=== PATIENT | male | born 1945 | race African-American/Black ===

== ENCOUNTER 2021-08-09 22:36 | Inpatient (IN) | payer OTHER ==
[~2021-08-09] VITALS: Ht 185.4 cm; Wt 98.0 kg
[2021-08-10 00:53] LABS: BASOPHILS % 0.9 % (0.0-2.0); HEMATOCRIT. 44.7 % (42.0-52.0); HEMOGLOBIN. 14.6 g/dL (14.0-18.0); LYMPHOCYTES % 14.3 % (20.0-50.0); MEAN CORPUSCULAR HEMOGLOBIN 28.7 pg (28.0-32.0); MEAN CORPUSCULAR VOLUME 87.9 fL (80.0-94.0); MEAN PLATELET VOLUME 9.4 fl (7.4-10.4); MONOCYTES % 12.1 % (2.0-8.0); NEUTROPHILS % 69.7 % (40.0-76.0); PLATELET 148 x1000/uL (130-400); RED BLOOD CELL COUNT 5.08 mill/uL (4.7-6.1); RED CELL DISTRIBUTION WIDTH 14.3 % (11.6-14.6)
[2021-08-10 00:56] LABS: CHLORIDE 106 mEq/L (98-107)
[2021-08-10 00:59] LABS: ETHANOL BLOOD < 10 mg/dL
[2021-08-10] MEDS ORDERED: ASPIRIN 325MG EC TABLET PO SCH (01:45)
[2021-08-10] MEDS ORDERED: GUAIFENESIN 200MG/10ML SUGAR FREE UDC PO PRN (04:30)
[2021-08-10] MEDS ORDERED: LORAZEPAM 0.5MG TABLET PO PRN (04:30)
[2021-08-10] MEDS ORDERED: DOCUSATE SODIUM 100MG CAPSULE PO PRN (04:30)
[2021-08-10] MEDS ORDERED: ONDANSETRON HCL 4MG/2ML INJ IV PRN (04:30)
[2021-08-10] MEDS ORDERED: IPRATROPIUM/ALBUTEROL 0.5-3(2.5)MG/3ML NEB HHN PRN (04:30)
[2021-08-10] MEDS: CLONIDINE 0.1MG TABLET PO PRN ×3 (06:13→23:21)
[2021-08-10] MEDS: ACETAMINOPHEN 325MG TABLET PO PRN ×3 (06:57→18:41)
[2021-08-10 08:48] VITALS: BP 146/94
[2021-08-10] MEDS ORDERED: HYDRALAZINE 20MG/ML VIAL IV PRN (09:15)
[2021-08-10] MEDS ORDERED: LOSARTAN POTASSIUM 25 MG TABLET PO SCH (09:30)
[2021-08-10] MEDS ORDERED: AMLODIPINE 10MG TABLET PO SCH (09:30)
[2021-08-10 11:30] LABS: VITAMIN B12 SERUM 735 pg/mL (211-911)
[2021-08-10] MEDS ORDERED: ALBU4TAB6 MT (11:30)
[2021-08-10] MEDS ORDERED: TIOT18CA3 PO (11:30)
[2021-08-10] MEDS ORDERED: DABI75CA3 MT (11:30)
[2021-08-10] MEDS ORDERED: LOSA25TA26 MT (11:30)
[2021-08-10] MEDS ORDERED: ALLO100T MT (11:30)
[2021-08-10] MEDS ORDERED: ALBU4TAB6 NEB (11:30)
[2021-08-10] MEDS ORDERED: eyedrops (11:43)
[2021-08-10 11:45] LABS: INR 1.1; PROTHROMBIN TIME 11.3 sec (9.6-11.0)
[2021-08-10 12:00] VITALS: BP 150/98
[2021-08-10] MEDS ORDERED: ENOXAPARIN 100MG/ML SYR SUBCUT SCH ×2 (13:00→23:00)
[2021-08-10] MEDS: CARVEDILOL 3.125 MG TABLET PO SCH ×2 (13:37→21:11)
[2021-08-10] MEDS ORDERED: ASPIRIN 81MG TABLET PO SCH (13:45)
[2021-08-10 16:00] VITALS: BP 178/112
[2021-08-10 20:00] VITALS: BP 144/106
[2021-08-10] MEDS ORDERED: ATORVASTATIN CALCIUM 20MG TABLET PO SCH (21:00)
[2021-08-10] MEDS ORDERED: ATORVASTATIN CALCIUM 10MG TABLET PO SCH (21:00)
[2021-08-11] VITALS: BP 144/111
[2021-08-11 03:43] VITALS: BP 147/76
[2021-08-11 09:10] LABS: FOLATE HEMATOCRIT 47.9 % (37.5-51.0)
[2021-08-11 13:07] LABS: FOLATE RBC 862 ng/mL (>498)
== END 2021-08-11 04:40 | disposition home or self-care (01) | DRG 305 ==
LOC: ER 22:36 → 6WST 08-10 02:03 → ENRESERV 08-10 08:10 → 6WST 08-10 18:32
PROVIDERS: ADMIT Internal Medicine; ATTEND Internal Medicine
DX: I16.0 Hypertensive urgency (principal); R42 Dizziness and giddiness; I11.9 Hypertensive heart disease without heart failure; I48.91 Unspecified atrial fibrillation; J43.9 Emphysema, unspecified; E78.5 Hyperlipidemia, unspecified; R77.8 Other specified abnormalities of plasma proteins; R01.1 Cardiac murmur, unspecified; I69.398 Other sequelae of cerebral infarction; Z79.899 Other long term (current) drug therapy; N20.0 Calculus of kidney
CPT/HCPCS: 36415; 71045; 74176; 80053; 80320; 82607; 82747; 83880; 84484; 85014; 85025; 93005; 93306; 99291; J1650; G0480